=== PATIENT | male | born 1975 | race Caucasian/White ===

== ENCOUNTER 2020-11-25 14:07 | Emergency (ER) | payer BC ==
[2020-11-25 17:05] LABS: HEMOGLOBIN 14.6 gm/dl (14.0-17.5); RED BLOOD COUNT 4.83 M/UL (4.20-5.50)
[2020-11-25 17:27] LABS: BUN/CREATININE RATIO 20 (0-10)
[2020-11-25] MEDS ORDERED: METFORMIN HCL500 M2 PO (19:03)
== END 2020-11-25 19:35 | disposition home or self-care (01) ==
LOC: ER1 14:07
PROVIDERS: Student in an Organized Health Care Education/Training Program
DX: R73.9 Hyperglycemia, unspecified (principal); F17.210 Nicotine dependence, cigarettes, uncomplicated
CPT/HCPCS: 80053; 81001; 82550; 82553; 83735; 83874; 84100; 84484; 85025; 93005; 99285; J7120

== ENCOUNTER → 2022-01-19 | Outpatient (CLI) | payer OTHER ==
[~2022-01-19] MED LIST: METFORMIN HCL500 M2 PO
[2022-01-20 11:17] LABS: RHEUMATOID ARTHRITIS FACTOR <10.0 IU/mL (<14.0)
[2022-01-20 23:07] LABS: TESTOSTERONE, SERUM 365 ng/dL (264-916)
== END ==
LOC: LAB 12:57
PROVIDERS: Nurse Practitioner Family
DX: R97.20 Elevated prostate specific antigen [PSA] (principal); I10 Essential (primary) hypertension; M25.50 Pain in unspecified joint
CPT/HCPCS: 36415; 84153; 84402; 84403; 85652; 86140; 86200; 86431

== ENCOUNTER → 2022-02-02 | Outpatient (CLI) | payer OTHER | LOC: EXRD 09:20 | DX: M54.2 Cervicalgia (principal); M47.812 Spondylosis without myelopathy or radiculopathy, cervical region | CPT/HCPCS: 72040; 73030 ==